=== PATIENT | female | born 1995 | race Two or more races ===

== ENCOUNTER 2022-11-02 11:33 | Emergency (ER) | payer MEDICAID ==
[~2022-11-02] VITALS: Ht 167.6 cm; Wt 52.4 kg
[2022-11-02 12:25] LABS: Urine Bacteria NONE SEEN /hpf (None Seen); Urine Blood Negative /uL (Negative); Urine Clarity Clear (Clear); Urine Mucus FEW (None Seen); Urine Protein, UAD Negative (Negative); Urine Specific Gravity 1.004 (1.001-1.035); Urine Urobilinogen Normal (Negative); Urine WBC <1 /hpf (0 - 5); Urine pH 6.5 (5.0-8.0)
[2022-11-02 12:37] LABS: Urine Color STRAW (Yellow)
[2022-11-02 12:45] LABS: Basophils # (auto) 0 10 ^3/uL (0-0.2); Basophils % (auto) 0.4 % (0.0-2.0); Eosinophils # (auto) 0.1 10 ^3/uL (0-0.8); Hematocrit 38.6 % (36.0-46.0); Hemoglobin 12.9 g/dL (12.2-16.2); Lymphocytes # (auto) 1.8 10 ^3/uL (0.4-5.4); Lymphocytes % (auto) 24.8 % (10.0-50.0); Mean Corpuscular Hemoglobin 29.6 pg (28.0-32.0); Mean Corpuscular Hgb Conc. 33.3 g/dL (32.0-36.0); Mean Corpuscular Volume 88.8 fL (80.0-100.0); Monocytes # (auto) 0.3 10 ^3/uL (0-1.3); Monocytes % (auto) 4.6 % (0.0-12.0); Neutrophils # (auto) 5.1 10 ^3/uL (1.6-8.6); Neutrophils % (auto) 69.2 % (37.0-80.0); Red Blood Cells 4.35 10^6/uL (4.0-5.20); Red Cell Distribution Width 12.6 % (11.8-14.3); White Blood Cell 7.3 10^3/uL (4.4-10.8)
[2022-11-02 12:58] LABS: Potassium 4.1 mmol/L (3.5-5.1)
[2022-11-02 13:01] LABS: BUN/Creatinine Ratio 10.8 (10.0-20.0); Bilirubin, Total 0.7 mg/dL (0.2-1.0); Total Protein 7.4 g/dL (6.4-8.2)
[2022-11-02] MEDS ORDERED: TRAM-711 PO (15:07)
[2022-11-02] MEDS ORDERED: METO-281 PO (15:07)
[2022-11-02] MEDS ORDERED: DICL75TA2 PO (15:07)
[2022-11-02 15:45] VITALS: BP 124/74; PULSE 71; RESP 17; TEMP 98.6; O2SAT 96
== END 2022-11-02 15:53 | disposition home or self-care (01) ==
LOC: ER 11:33
DX: K80.50 Calculus of bile duct without cholangitis or cholecystitis without obstruction (principal); R10.2 Pelvic and perineal pain; Z32.02 Encounter for pregnancy test, result negative
CPT/HCPCS: 36415; 76705; 80053; 81001; 83605; 83690; 84702; 85025

== ENCOUNTER 2023-04-25 09:42 | Emergency (ER) | payer MEDICAID ==
[~2023-04-25] VITALS: Ht 167.6 cm; Wt 56.8 kg
[~2023-04-25 09:42] MED LIST: DICL75TA2 PO; METO-281 PO; TRAM-711 PO
[2023-04-25 10:55] LABS: Urine Bacteria MOD /hpf (None Seen); Urine Blood 2+ /uL (Negative); Urine Clarity HAZY (Clear); Urine Color Yellow (Yellow); Urine Mucus MODERATE (None Seen); Urine Protein, UAD 1+ (Negative); Urine Specific Gravity 1.025 (1.001-1.035); Urine WBC 50 /hpf (0 - 5); Urine pH 6.5 (5.0-8.0)
[2023-04-25 11:37] VITALS: BP 100/63; PULSE 75; RESP 18; TEMP 99; O2SAT 98
[2023-04-25] MEDS ORDERED: PHEN-922 PO (12:19)
[2023-04-25] MEDS ORDERED: BACDST PO (12:19)
== END 2023-04-25 12:25 | disposition home or self-care (01) ==
LOC: ER 09:42
DX: N39.0 Urinary tract infection, site not specified (principal)
CPT/HCPCS: 81001